=== PATIENT | male | born 1940 | race Caucasian/White ===

== ENCOUNTER 2016-07-21 15:01 | Emergency (ER) | payer MEDICARE, BC ==
[~2016-07-21] VITALS: Ht 165.1 cm; Wt 77.4 kg
[2016-07-21] MEDS ORDERED: LOSA25TA5 PO (15:26)
[2016-07-21] MEDS ORDERED: METF500T4 PO (15:26)
[2016-07-21] MEDS ORDERED: SODIUM CHLORIDE FLUSH 10ML SYR IVF ONE (15:30)
[2016-07-21 15:46] LABS: HEMOGLOBIN 14.5 g/dL (13.7-18.0)
[2016-07-21 15:54] LABS: BLOOD UREA NITROGEN 9 mg/dL (7-18)
[2016-07-21 16:06] LABS: IS PT STATUS REG ER OR PRE ER? YES
[2016-07-21 16:50] VITALS: BP 148/90
== END 2016-07-21 16:56 | disposition home or self-care (01) ==
LOC: ED 16:30
DX: R06.00 Dyspnea, unspecified (principal); I10 Essential (primary) hypertension; E11.9 Type 2 diabetes mellitus without complications; Z87.891 Personal history of nicotine dependence
CPT/HCPCS: 36415; 71010; 80048; 82040; 83880; 84484; 85025; 93005

== ENCOUNTER 2016-10-22 11:47 | Emergency (ER) | payer MEDICARE, BC ==
[~2016-10-22] VITALS: Ht 165.1 cm; Wt 73.0 kg
[~2016-10-22 11:47] MED LIST: LOSA25TA5 PO; METF500T4 PO
[2016-10-22] MEDS ORDERED: OXYcodone/APAP 5/325MG TABLET ONE (12:19)
[2016-10-22] MEDS ORDERED: LIDOCAINE 1%, 20ML ONE (12:19)
[2016-10-22] MEDS ORDERED: OXYcodone/APAP 5/325MG TABLET PO ONE (12:30)
[2016-10-22 12:51] LABS: BLOOD UREA NITROGEN 12 mg/dL (7-18)
[2016-10-22 13:54] VITALS: BP 138/92
== END 2016-10-22 13:56 | disposition home or self-care (01) ==
LOC: ED 13:30
DX: L02.214 Cutaneous abscess of groin (principal); E11.65 Type 2 diabetes mellitus with hyperglycemia; I10 Essential (primary) hypertension; Z87.891 Personal history of nicotine dependence
CPT/HCPCS: 10060; 36415; 80048; 82040; 85025

== ENCOUNTER 2016-12-12 14:23 | Inpatient (IN) | payer MEDICARE, BC ==
[~2016-12-12] VITALS: Ht 165.1 cm; Wt 76.1 kg
[2016-12-12] MEDS ORDERED: DILTIAZEM 5 MG/ML, 5ML IV ONE (15:00)
[2016-12-12] MEDS ORDERED: SODIUM CHLORIDE FLUSH 10ML SYR IVF ONE (15:00)
[2016-12-12 15:09] LABS: HEMATOCRIT 45.2 % (39.2-51.8); HEMOGLOBIN 15.1 g/dL (13.7-18.0); WHITE BLOOD COUNT 6.5 x10^3/uL (3.4-10)
[2016-12-12 15:30] LABS: ASPARTATE AMINO TRANSFERASE 12 U/L (15-37); BLOOD UREA NITROGEN 12 mg/dL (7-18)
[2016-12-12 15:35] LABS: IS PT STATUS REG ER OR PRE ER? YES
[2016-12-12] MEDS ORDERED: SODIUM CHLORIDE FLUSH 10ML SYR IVF PRN (17:00)
[2016-12-12 19:23] VITALS: BP 146/84
[2016-12-12] MEDS ORDERED: DOCUSATE 100 MG CAPSULE PO PRN (20:00)
[2016-12-12] MEDS ORDERED: ONDANSETRON ODT 4 MG PO PRN (20:00)
[2016-12-12] MEDS ORDERED: ACETAMINOPHEN 325 MG TABLET PO PRN (20:00)
[2016-12-12] MEDS ORDERED: TEMAZEPAM 15 MG CAPSULE PO PRN (20:00)
[2016-12-12] MEDS ORDERED: GUAIFENESIN/DM 200-20MG, 10ML UDC PO PRN (20:00)
[2016-12-12] MEDS ORDERED: ASPIRIN 325 MG TABLET EC PO ONE (20:00)
[2016-12-12 20:06] VITALS: BP 146/84
[2016-12-12] MEDS: INSULIN REGULAR 100 UNITS/ML, 3ML VIAL SQ-INSULIN SCH ×2 (21:00→23:38)
[2016-12-12] MEDS: ENOXAPARIN 40 MG/0.4 ML SQ SCH (21:12)
[2016-12-12 21:25] LABS: IS PT STATUS REG ER OR PRE ER? NO
[2016-12-13 02:38] VITALS: BP 148/98
[2016-12-13 03:27] LABS: HEMOGLOBIN 14.9 g/dL (13.7-18.0)
[2016-12-13 03:36] LABS: BLOOD UREA NITROGEN 11 mg/dL (7-18)
[2016-12-13 03:58] LABS: IS PT STATUS REG ER OR PRE ER? NO
[2016-12-13 07:28] VITALS: BP 133/83
[2016-12-13] MEDS: LOSARTAN 25MG TABLET PO SCH (08:18)
[2016-12-13] MEDS: INSULIN REGULAR 100 UNITS/ML, 3ML VIAL SQ-INSULIN SCH ×4 (08:18→21:17)
[2016-12-13 15:30] VITALS: BP 121/75
[2016-12-13 19:00] VITALS: BP 123/74
[2016-12-13] MEDS ORDERED: ATORVASTATIN 10 MG TABLET PO SCH (21:00)
[2016-12-13] MEDS: ATORVASTATIN 80 MG TABLET PO SCH (21:17)
[2016-12-13] MEDS: ENOXAPARIN 40 MG/0.4 ML SQ SCH (21:17)
[2016-12-14 01:35] VITALS: BP 143/72
[2016-12-14] MEDS: ASPIRIN 81 MG TABLET EC PO SCH (05:31)
[2016-12-14 07:17] VITALS: BP 124/81
[2016-12-14] MEDS: LOSARTAN 25MG TABLET PO SCH (07:33)
[2016-12-14] MEDS: INSULIN REGULAR 100 UNITS/ML, 3ML VIAL SQ-INSULIN SCH ×4 (07:33→21:06)
[2016-12-14 13:00] VITALS: BP 133/78
[2016-12-14] MEDS ORDERED: CARVEDILOL 3.125 MG TABLET PO SCH (18:00)
[2016-12-14 20:00] VITALS: BP 117/70
[2016-12-14] MEDS: ATORVASTATIN 80 MG TABLET PO SCH (21:03)
[2016-12-14] MEDS: ENOXAPARIN 40 MG/0.4 ML SQ SCH (21:03)
[2016-12-15 02:00] VITALS: BP 144/88
[2016-12-15] MEDS: ASPIRIN 81 MG TABLET EC PO SCH (05:41)
[2016-12-15 06:51] VITALS: BP 125/77
[2016-12-15] MEDS: INSULIN REGULAR 100 UNITS/ML, 3ML VIAL SQ-INSULIN SCH (08:17)
[2016-12-15] MEDS: LOSARTAN 25MG TABLET PO SCH (08:18)
[2016-12-15] MEDS ORDERED: CARV3.122 PO ×2 (09:37→10:41)
[2016-12-15] MEDS ORDERED: LISI5TAB7 PO ×2 (09:37→10:41)
[2016-12-15] MEDS ORDERED: ATOR-2 PO (09:37)
[2016-12-15] MEDS ORDERED: METF500T4 PO ×2 (09:37→10:41)
[2016-12-15] MEDS ORDERED: ASPI-621 PO ×2 (09:37→10:41)
[2016-12-15] MEDS ORDERED: PNEUMOCOCCAL 23 VACCINE IM-VACC ONE (11:00)
== END 2016-12-15 10:55 | disposition home or self-care (01) | DRG 65 ==
LOC: ED 16:30 → EDIP 16:40 → 4WST 18:40 → DCLOUNGE 12-15 10:20
PROVIDERS: ADMIT Internal Medicine; ATTEND Internal Medicine
DX: I63.9 Cerebral infarction, unspecified (principal); R17 Unspecified jaundice; I11.0 Hypertensive heart disease with heart failure; E11.42 Type 2 diabetes mellitus with diabetic polyneuropathy; I50.40 Unspecified combined systolic (congestive) and diastolic (congestive) heart failure; G46.0 Middle cerebral artery syndrome; E11.65 Type 2 diabetes mellitus with hyperglycemia; I16.0 Hypertensive urgency; I73.9 Peripheral vascular disease, unspecified; Z82.49 Family history of ischemic heart disease and other diseases of the circulatory system; Z83.3 Family history of diabetes mellitus; Z87.891 Personal history of nicotine dependence; Z91.14 Patient's other noncompliance with medication regimen
CPT/HCPCS: 36415; 70450; 70551; 71010; 80048; 80053; 80061; 81003; 82962; 83036; 83735; 83880; 84100; 84484; 85025; 85651; 86141; 93005; 93306; 93880; 99285; J1650; J1815; 92523-GN